=== PATIENT | female | born 1975 | race Two or more races ===

== ENCOUNTER 2018-12-06 03:55 | Emergency (ER) | payer SELFPAY ==
[~2018-12-06] VITALS: Ht 160 cm; Wt 49.4 kg
--- NOTE | 2018-12-06 04:05 | NUR ---
BIBRA. C/O "+N/V. +ABD PAIN" -SOB AOX4. VSS. AMBULATORY. POSSIBLY , PT IS AAOX4, NOT IN RESPIRATORY DISTRESS, HOOKED TO MONITOR, KEPT RESTED AND COMFORTABLE, WILL CONTINUE TO MONITOR.
[2018-12-06] MEDS ORDERED: ONDANSETRON HCL/PF 4 MG/2 ML VIAL IVP ONE (04:30)
[2018-12-06] MEDS ORDERED: IV NS 0.9% 500 ML BAG IV ONE (04:30)
--- NOTE | 2018-12-06 04:35 | NUR ---
URINE SPECIMEN COLLECTED AND SENT TO LAB.
--- NOTE | 2018-12-06 04:40 | NUR ---
IV LINE ESTABLISHED, BLOOD DRAWN AND SENT TO LAB.
[2018-12-06] MEDS ORDERED: ONDANSETRON HCL/PF 4 MG/2 ML VIAL ONE (04:42)
[2018-12-06 04:47] LABS: BASOPHILS % (AUTO) 0.4 % (0.0-2.0); EOSINOPHILS % (AUTO) 1.4 % (0.0-6.0); HEMATOCRIT 41 % (33-45); HEMOGLOBIN 13.2 g/dL (11.5-14.8); LYMPHOCYTES # (AUTO) 1.1 /CMM (0.8-4.8); LYMPHOCYTES % (AUTO) 12.1 % (20.0-44.0); MEAN CORPUSCULAR HGB CONC 33 g/dl (31.0-36.0); MEAN CORPUSCULAR VOLUME 92 fL (82-100); MONOCYTES # (AUTO) 0.6 /CMM (0.1-1.30); MONOCYTES % (AUTO) 6.3 % (2.0-12.0); NEUTROPHILS % (AUTO) 79.8 % (43.0-81.0); PLATELET COUNT (AUTO) 314 /CMM (150-450); RED BLOOD CELL COUNT(AUTO) 4.43 MIL/uL (4.0-5.2); WHITE BLOOD COUNT (AUTO) 8.8 K/uL (4.3-11.0)
[2018-12-06 04:52] LABS: APPEARANCE,URINE CLEAR (CLEAR); BILIRUBIN,URINE NEGATIVE (NEGATIVE); BLOOD, URINE NEGATIVE Ery/uL (NEGATIVE); COLOR,URINE YELLOW (YELLOW); KETONES,URINE NEGATIVE (NEGATIVE); LEUKOCYTE ESTERASE ,URINE NEGATIVE (NEGATIVE); NITRITE, URINE NEGATIVE (NEGATIVE); PROTEIN,URINE NEGATIVE (NEGATIVE); UGLUCOSE NEGATIVE (NEGATIVE); UROBILINOGEN,URINE 0.2 EU/dL (0.2)
[2018-12-06 04:59] LABS: CALCIUM, SERUM 9.1 mg/dL (8.5-10.1); CREATININE 0.7 mg/dL (0.6-1.3); POTASSIUM 4.4 mmol/L (3.5-5.1)
[2018-12-06 05:00] LABS: PH,URINE 8.5 (5.0-8.0)
[2018-12-06 05:12] LABS: ALBUMIN 3.7 g/dL (3.4-5.0); BILIRUBIN,TOTAL 0.1 mg/dL (0.2-1.0); TOTAL PROTEIN, SERUM 7.6 g/dL (6.4-8.2)
[2018-12-06] MEDS ORDERED: HYDROMORPHONE 1 MG/1 ML DISP.SYRIN ONE (06:38)
[2018-12-06] MEDS ORDERED: METOCLOPRAMIDE HCL 10 MG/2 ML VIAL ONE (06:38)
[2018-12-06] MEDS ORDERED: HYDROMORPHONE INJ 2 MG/ML DISP.SYRIN IV ONE (07:00)
[2018-12-06] MEDS ORDERED: METOCLOPRAMIDE HCL 10 MG/2 ML VIAL IV ONE (07:00)
--- NOTE | 2018-12-06 07:56 | NUR ---
Patient discharged to home in stable condition. Written and verbal after care instructions given. Patient verbalizes understanding of instruction.IV removed. Catheter intact and site benign. Pressure and 4x4 applied to site. No bleeding noted.
[2018-12-06 07:57] VITALS: BP 115/87
== END 2018-12-06 08:01 | disposition home or self-care (01) ==
LOC: ER 03:57
DX: R11.2 Nausea with vomiting, unspecified (principal); R10.84 Generalized abdominal pain; I95.9 Hypotension, unspecified; E11.9 Type 2 diabetes mellitus without complications; F32.9 Major depressive disorder, single episode, unspecified
CPT/HCPCS: 36415; 74176; 80048; 80076; 81001; 84702; 85025; 96374; 96375; 99284; A4216; J1170; J2405; J2765; J7040; 81000-TC

== ENCOUNTER 2022-06-24 18:21 | Emergency (ER) | payer OTHER ==
[~2022-06-24] VITALS: Ht 160 cm; Wt 59.0 kg
--- NOTE | 2022-06-24 18:31 | NUR ---
[id number] c/o generalized body aches x "few days" states been walking alot.
[2022-06-24] MEDS ORDERED: ACET325C7 PO (18:52)
[2022-06-24] MEDS ORDERED: CYCLOBENZAPRINE 10 MG TABLET ONE (19:00)
[2022-06-24] MEDS ORDERED: CYCLOBENZAPRINE 10 MG TABLET PO ONE (19:00)
[2022-06-24] MEDS ORDERED: NAPROXEN 250 MG TABLET PO ONE (19:00)
[2022-06-24] MEDS ORDERED: NAPROXEN 250 MG TABLET ONE (19:01)
[2022-06-24 20:44] VITALS: BP 96/64
== END 2022-06-24 20:44 | disposition home or self-care (01) ==
LOC: EDUNIT# 18:21 → ER 18:30
DX: M79.10 Myalgia, unspecified site (principal); E11.9 Type 2 diabetes mellitus without complications; F32.A Depression, unspecified